=== PATIENT | male | born 1950 | race Caucasian/White ===

== ENCOUNTER 2020-01-16 10:33 | Emergency (ER) | payer MEDICARE ==
[~2020-01-16] VITALS: Wt 77.3 kg
[2020-01-16 10:43] VITALS: BP 125/96; TEMP 97.8
[2020-01-16] MEDS ORDERED: PREDNISONE20 MG PO (12:47)
[2020-01-16 12:54] VITALS: PULSE 79
== END 2020-01-16 12:55 | disposition home or self-care (01) ==
LOC: COL.ER 10:33
DX: J45.901 Unspecified asthma with (acute) exacerbation (principal); Z79.52 Long term (current) use of systemic steroids
CPT/HCPCS: J7512